=== PATIENT | male | born 2000 | race Caucasian/White ===

== ENCOUNTER 2020-07-20 19:39 | Emergency (ER) | payer MEDICAID ==
[~2020-07-20] VITALS: Ht 172.7 cm; Wt 58.0 kg
[2020-07-20 20:08] VITALS: BP 131/92
== END 2020-07-20 21:32 | disposition home or self-care (01) ==
LOC: ER 19:39
DX: H92.01 Otalgia, right ear (principal); Z98.890 Other specified postprocedural states
CPT/HCPCS: 99282